=== PATIENT | male | born 1995 | race Hispanic/Latino ===

== ENCOUNTER → 2016-06-17 | Day surgery (SDC) | payer OTHER ==
[~2016-06-17] VITALS: Ht 185.4 cm; Wt 65.8 kg
--- NOTE | 2016-06-17 15:04 | Operative Report ---
Operative/Inv Procedure Report Surgery Date: 06/17/16 Name of Procedure: left epididymal cyst excision, circumcision Pre-Operative Diagnosis: left epididymal cyst, and phymosis Post-Operative Diagnosis: same Estimated Blood Loss: less than 50ml Surgeon/Cop: JAN THOMPSON MD Anesthesia: laryngeal mask airway Specimens: foreskin Complications: none Condition: stable Operative Indication: symptomatic phimosis, left epididymal cyst symptomatic Operative/Procedure Note Note: This an operative dictation on patient Gaurang Valero. Patient was identified in the holding area and consented for left epididymal cyst excision and circumcision. The risks benefits and alternatives of the surgery were given. All questions were answered. He had no other family here and the was okay with that. Patient was taken to the operating placed on the operative table supine position. Once timeout was performed SCDs were placed bilaterally. IV antibodies were infused and LMA anesthesia was started. Patient was prepped and draped in standard sterile fashion and the genitalia region. The case was started with the left epididymal cyst. An incision was made over the excess cyst site. Carried down to the area of the cyst and then was delivered outside of the scrotal incision. It was carefully dissected free from the spermatic cord. The cyst was able to be kept intact in its entirety and this was sent off to pathology in formalin. Point coagulation was performed for any bleeding. The testicle was placed back into the scrotum in the correct orientation. The incision site was closed with 3-0 running Vicryl suture followed by 30 sorry 4-0 chromic skin horizontal mattress sutures. The circumcision portion of the case was then started. The foreskin border was delineated with a marking pen. The straight clamps were used to pull up the foreskin and then a Carri was then used to crush the foreskin's and the site of the resection. It was cut with the 15 blade. Was passed off the field. The active bleeding was coagulated point coagulated with the needle Bovie. The circumcision incision was then closed using interrupted 3-0 Vicryl sutures. As a U incision was made at the frenulum. The bacitracin ointment was applied and a Xeroform followed by 4 x 4 followed by Kopan was applied as a dressing. A scrotal support was placed at the site of the epididymal cyst excision. Sponge and needle count were correct end of the case. Discharge Disposition: PACU
== END ==
LOC: STS 03:26
DX: N50.3 Cyst of epididymis (principal); N47.1 Phimosis; F17.200 Nicotine dependence, unspecified, uncomplicated
CPT/HCPCS: 88304; J0131; J0690; J1100; J1885; J2250; J2405

== ENCOUNTER 2017-10-03 21:56 | Emergency (ER) | payer SELFPAY ==
[~2017-10-03] VITALS: Ht 185.4 cm; Wt 81.6 kg
[~2017-10-03 21:56] MED LIST: NAPROSYN500 M1 PO; ROBAXIN500 M1 PO
[2017-10-03 22:00] VITALS: BP 121/75
--- NOTE | 2017-10-03 22:21 | ED EAR COMPLAINT ---
History of Present Illness General Chief Complaint: General Adult Stated Complaint: "I GOT LUMPS BEHIND BOTH EARS." Source: patient Exam Limitations: no limitations Vital Signs & Intake/Output Vital Signs & Intake/Output Vital Signs Date Time Temp Pulse Resp B/P B/P Pulse O2 O2 Flow FiO2 Mean Ox Delivery Rate 10/03 2200 97.3 55 18 121/75 99 Room Air ED Intake and Output 10/04 0000 10/03 1200 Intake Total Output Total Balance Patient 180 lb Weight Weight Reported by Patient Measurement Method Allergies Coded Allergies: cat dander (SNEEZING PER PT 10/03/17) Reconcile Medications Methocarbamol (Robaxin) 500 MG TABLET 1 TAB PO TID PRN MUSCLE SPASMS Naproxen (Naprosyn) 500 MG TABLET 1 TAB PO BID PRN PAIN Triage Note: PT FROM HOME C/O "LUMPS" BEHIND BILATERAL EARS, 3 ON LT SIDE AND 3 ON RT. PTS VSS. PT STATES HE NOTICED THE LUMPS 1 HR PRIOR. PT STATES NAPE OF NECK [place]. PT DENIES BLURRED VISION, N/V. Triage Nurses Notes Reviewed? yes Onset: Abrupt Duration: constant Timing: single episode today HPI: Patient is a 21-year-old male with a unremarkable past medical history of present emergent with concerns of palpating his posterior cervical region and noted multiple mildly tender bumps to either side. Patient denies any fever chills headache neck pain or stiffness weight loss night sweats cough shortness of breath rash ear pain sore throat or signs of illness. (Sergei Drummond) Past History Travel History Traveled to [place] past 21 day No Medical History Any Pertinent Medical History? 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 No (Sergei Drummond) Review of Systems Review of Systems Constitutional: Reports: no symptoms. EENTM: Reports: see HPI. Respiratory: Reports: no symptoms. Cardiovascular: Reports: no symptoms. GI: Reports: no symptoms. Genitourinary: Reports: no symptoms. Musculoskeletal: Reports: no symptoms. Skin: Reports: no symptoms. Neurological/Psychological: Reports: no symptoms. Hematologic/Endocrine: Reports: no symptoms. Immunologic/Allergic: Reports: see HPI, lymphadenopathy. All Other Systems: Reviewed and Negative (Sergei Drummond) Physical Exam Physical Exam General Appearance: no apparent distress, alert, comfortable Head: atraumatic Eyes: Bilateral: normal appearance, PERRL. Ears: Bilateral: canal normal, Tympanic normal. Nose: normal inspection Mouth/Throat: normal mouth inspection, pharynx normal Neck: normal inspection, supple, full range of motion, BILATERAL POSTERIOR CERVICAL ADENOPATHY Cardiovascular/Respiratory: normal breath sounds, normal peripheral pulses, regular rate/rhythm Neurologic/Psych: no motor/sensory deficits, awake Skin: intact, normal color, warm/dry (Sergei Drummond) Progress Differential Diagnoses I considered the following diagnoses in my evaluation of the patient: [ Lymphadenopathy, mononucleosis, lymphoma, viral syndrome,] Plan of Care: Patient has nonspecific cervical adenopathy patient denies any symptoms of illness denies any symptoms for concerning signs of lymphoma however did discuss with patient to follow up with hospice community liaison, patient's symptoms began 1 hour prior to arrival patient's urinalysis and throat exam was unremarkable denies any respiratory complaints night sweats fevers chills and is otherwise without complaints. No signs of infectious process at this time. Initial ED EKG: none (Sergei Drummond) Departure Departure Disposition: HOME OR SELF CARE Condition: Stable Clinical Impression Primary Impression: Posterior cervical adenopathy Referrals: Parveen AMADOR,Harvey (PCP/Family) Additional Instructions: As discussed if symptoms worsen or if YOU develop any new concerning symptom return to the emergency room, follow-up with your hospice community liaison in 2 days if no better Departure Forms: Customer Survey General Discharge Information (Sergei Drummond) PA/PEST MANAGEMENT SUPERVISOR Co-Sign Statement Statement: ED Attending supervision documentation- [] I saw and evaluated the patient. I have also reviewed all the pertinent lab results and diagnostic results. I agree with the findings and the plan of care as documented in the PA's/PEST MANAGEMENT SUPERVISOR's documentation. [x] I have reviewed the ED Record and agree with the PA's/PEST MANAGEMENT SUPERVISOR's documentation. [] Additions or exceptions (if any) to the PAs/PEST MANAGEMENT SUPERVISOR's note and plan are summarized below: [] (Karthik Bernard DO)
== END 2017-10-03 22:44 ==
LOC: ERH 21:56
DX: R59.9 Enlarged lymph nodes, unspecified (principal)